=== PATIENT | female | born 1995 ===

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

== ENCOUNTER 2017-08-06 21:07 | Emergency (ER) | payer MEDICAID ==
[2017-08-06 21:28] VITALS: RESP 16
[2017-08-06 22:55] LABS: BASO # 0.1 K/uL (0.0-0.2); BASO % 0.5 % (0.0-2.0); EOS # 0.2 K/uL (0.0-0.7); EOS % 0.9 % (0.0-4.0); HEMOGLOBIN 13.3 g/dL (12.0-16.0); LYMPH # 2.7 K/uL (1.0-4.3); LYMPH % 14.2 % (20.0-40.0); MEAN CELL VOLUME 88.5 fl (81.0-99.0); MEAN CORPUSCULAR HEMOGLOBIN 29.7 pg (27.0-31.0); MEAN CORPUSCULAR HGB CONC 33.6 g/dL (33.0-37.0); MEAN PLATELET VOLUME 8.3 fl (7.2-11.7); MONO # 1.5 K/uL (0.0-0.8); MONO % 7.8 % (0.0-10.0); NEUT # 14.4 K/uL (1.8-7.0); NEUT % 76.6 % (50.0-75.0); NRBC % 0.1 % (0.0-0.0); RBC 4.47 Mil/uL (3.80-5.20); RED CELL DISTRIBUTION WIDTH 12.6 % (11.5-14.5); WHITE BLOOD COUNT 18.8 K/uL (4.8-10.8)
--- NOTE | 2017-08-06 22:57 | ED PDOC ---
HPI: Headache Chief Complaint (Provider): headache/dental pain History Per: Patient History/Exam Limitations: no limitations Onset/Duration Of Symptoms: Hrs Current Symptoms Are (Timing): Still Present Pain Scale Rating Of: 10 Quality: "Pain" Preceeding Symptoms: denies: Visual Disturbances, Known Migraine Symptoms Associated Symptoms: denies: Photophobia, Blurred Vision, Nausea, Vomiting, Extremity Weakness Additional Complaint(s): Frida Naik is a 22 yo F with no chronic medical problems, presented to ED today 08/06/17 due to right sided dental pain, facial pain and headache. Pain started at 12 pm during the day, started as pain in right molar, and then radiated up the face and developed into right sided facial pain and right sided headache. Rates pain 10/10. Took 1 extra strength tylenol at home at 3 pm, but states it didn't help. Denies vision changes, dizziness, one sided/any weakness , loss of balance, nausea, vomiting, chest pain, shortness of breath. PMH: no chronic conditions; states she had issue with a "vein in her head" when she was 16 but no issues since then Surg hx: none OBGYN hx: uses nuvaring, LMP 07/19/17, (1 miscarriage in 2017 at 8 weeks) Fam hx: noncontributory Social hx: denies tobacco use, alcohol use, illicit drug use Meds: none Allergies: none <Aura Tamayo - Last Filed: 08/07/17 00:54> <Moises Srivastava - Last Filed: 08/08/17 05:41> Time Seen by Provider: 08/06/17 21:30 Chief Complaint (Nursing): Headache Supervising Attending Note - Supervising Attending Note The Documented history was done by the: Physician Head Bookkeeper The documented physical exam was done by the: Physician Head Bookkeeper - Attestation: I have personally seen and examined this patient.: Yes I have fully participated in the care of the patient.: Yes I have reviewed all pertinent clinical information: Yes <Moises Srivastava - Last Filed: 08/08/17 05:41> Past Medical History Vital Signs: Last Vital Signs Temp 100 F H 08/06/17 21:25 Pulse 100 H 08/06/17 21:25 Resp 16 08/06/17 21:25 BP 148/88 08/06/17 21:25 Pulse Ox 99 08/06/17 21:25 - Medical History PMH: No Chronic Diseases - Surgical History Surgical History: No Surg Hx - Family History Family History: States: No Known Family Hx - Social History Alcohol: None Drugs: Denies <Aura Tamayo - Last Filed: 08/07/17 00:54> Vital Signs: Last Vital Signs Temp 98.4 F 08/07/17 01:16 Pulse 88 08/07/17 01:16 Resp 16 08/07/17 01:16 BP 119/72 08/07/17 01:16 Pulse Ox 100 08/07/17 01:16 <Moises Srivastava - Last Filed: 08/08/17 05:41> - Home Medications Home Medications: Ambulatory Orders Medication Instructions Recorded Ibuprofen [Motrin] 600 mg PO Q6 #20 tab 04/23/16 oxyCODONE/Acetaminophen [Percocet 1 ea PO Q6 PRN #15 tab 04/23/16 5/325 mg Tab] Ciprofloxacin HCl [Cipro] 500 mg PO BID #20 tab 11/02/16 Dicyclomine [Bentyl] 20 mg PO BID PRN #30 tab 11/02/16 Naproxen [Naprosyn] 1 tab PO BID PRN #30 tab 11/02/16 metroNIDAZOLE [Flagyl] 500 mg PO TID #30 tab 11/02/16 Acetaminophen/Butalbital/Caf 1 - 2 tab PO Q6 PRN #20 tab 08/06/17 [Fioricet] Amoxicillin/Clavulanate [Augmentin 1 tab PO BID #28 tab 08/06/17 875 MG-125 MG] - Allergies Allergies/Adverse Reactions: Allergies Allergy/AdvReac Type Severity Reaction Status Date / Time No Known Allergies Allergy Verified 08/06/17 21:25 Review of Systems Constitutional: Positive for: Fever. Negative for: Chills Eyes: Negative for: Vision Change Cardiovascular: Negative for: Chest Pain, Palpitations Respiratory: Positive for: Cough. Negative for: Shortness of Breath Gastrointestinal: Negative for: Nausea, Vomiting, Abdominal Pain, Diarrhea, Constipation Genitourinary Female: Negative for: Dysuria, Frequency Skin: Negative for: Rash Neurological: Negative for: Weakness, Numbness, Incoordination, Change in Speech <MakennaJarrod pagea - Last Filed: 08/07/17 00:54> Physical Exam - Physical Exam Appears: Positive for: Uncomfortable Skin: Positive for: Normal Color, Warm, Dry Eye Exam: Positive for: Normal appearance, EOMI, PERRL. Negative for: Conjunctival injection, Scleral icterus ENT: Positive for: Pharynx Is (clear), Sinus Pain/Drainage (positive pain in maxillary sinus on R). Negative for: Pharyngeal Erythema, Tonsillar Exudate Neck: Positive for: Supple Cardiovascular/Chest: Positive for: Chest Non Tender, Tachycardia. Negative for : Murmur Respiratory: Positive for: Normal Breath Sounds. Negative for: Accessory Muscle Use, Respiratory Distress Gastrointestinal/Abdominal: Positive for: Normal Exam, Bowel Sounds, Soft. Negative for: Tenderness, Distended Back: Positive for: Normal Inspection Extremity: Negative for: Tenderness, Pedal Edema, Deformity, Swelling <BelkisAura - Last Filed: 08/07/17 00:54> - Laboratory Results Result Diagrams: 08/06/17 22:43 08/06/17 22:43 - ECG O2 Sat by Pulse Oximetry: 99 <DanieAura cantor - Last Filed: 08/07/17 00:54> - Laboratory Results Result Diagrams: 08/06/17 22:43 08/06/17 22:43 <Moises Srivastava - Last Filed: 08/08/17 05:41> Medical Decision Making Medical Decision Makin yo F w right sided headache and facial pain; dental pain vs sinusitis vs migraine CBC w/ diff Blood cultures x2 Lactic acid CMP Urine dip/preg/UA CT head w/o contrast CT maxilofacial w/o contrast IV toradol [address]: Near complete opacification of RIGHT maxillary sinus. Mild mucosal thickening of LEFT maxillary sinus. Mild mucosal thickening of RIGHT frontal sinus. Moderate mucosal mucosal thickening of ethmoid sinuses. Minimal mucosal thickening of sphenoid sinuses. Rocephin 2g IV ordered/given At re-eval, pt felt better, reported some sporadic discomfort in chest upon taking deep breath; EKG and CXR unremarkable. Pt stable for discharge with PO augmentin for 14 days, and fioricet; discussed w / Dr. Srivastava. <Aura Tamayo - Last Filed: 08/07/17 00:54> Disposition - Patient ED Disposition Is Patient to be Admitted: No - Disposition Disposition: Routine/Home Disposition Time: 00:52 <Aura Tamayo - Last Filed: 08/07/17 00:54> <Moises Srivastava - Last Filed: 08/08/17 05:41> - Clinical Impression Clinical Impression: Sinusitis - Disposition Referrals: [facility] [Provider Group] Condition: STABLE Prescriptions: Acetaminophen/Butalbital/Caf [Fioricet] 1 - 2 tab PO Q6 PRN #20 tab PRN Reason: Headache Amoxicillin/Clavulanate [Augmentin 875 MG-125 MG] 1 tab PO BID #28 tab Instructions: Sinusitis in Adults Forms: [facility] (Malay)
[2017-08-06 23:02] LABS: SQUAMOUS EPITHIAL 4 /hpf (0-5); URINE BACTERIA RARE (<OCC); URINE BILIRUBIN NEGATIVE (NEGATIVE); URINE BLOOD NEGATIVE (NEGATIVE); URINE CLARITY CLOUDY (Clear); URINE COLOR YELLOW (YELLOW); URINE GLUCOSE (UA) NEG (Normal); URINE LEUKOCYTE ESTERASE NEG Leu/uL (Negative); URINE PROTEIN NEGATIVE (NEGATIVE); URINE UROBILINOGEN 0.2-1.0 mg/dL (0.2-1.0)
[2017-08-06 23:03] LABS: ALT/SGPT 38 U/L (9-52); AST/SGOT 29 U/L (14-36); BLOOD UREA NITROGEN 11 mg/dl (7-17); CALCIUM 9.3 mg/dL (8.4-10.2); GFR AFRICAN-AMERICAN > 60; GFR NON-AFRICAN AMERICAN > 60
--- NOTE | 2017-08-06 23:15 | CT ---
EXAM: CT Head Without Intravenous Contrast CLINICAL HISTORY: 22 years old, female; Pain; Headache; Additional info: Right sided facial pain/headache TECHNIQUE: Axial computed tomography images of the head/brain without intravenous contrast. All CT scans at this facility use one or more dose reduction techniques, viz.: automated exposure control; ma/kV adjustment per patient size (including targeted exams where dose is matched to indication; i.e. head); or iterative reconstruction technique. Coronal and sagittal reformatted images were created and reviewed. COMPARISON: No relevant prior studies available. FINDINGS: Brain: No intracranial hemorrhage. No mass. No definite edema. Ventricles: No hydrocephalus. Bones/joints: No calvarial fracture. Soft tissues: Unremarkable. Mastoid air cells: No mastoid effusion. IMPRESSION: 1. No definite acute intracranial abnormality. 2. See sinus CT report for additional details.
--- NOTE | 2017-08-06 23:18 | CT ---
EXAM: CT Maxillofacial Without Intravenous Contrast CLINICAL HISTORY: 22 years old, female; Pain; Face pain; Additional info: Right sided facial pain TECHNIQUE: Axial computed tomography images of the face without intravenous contrast. All CT scans at this facility use one or more dose reduction techniques, viz.: automated exposure control; ma/kV adjustment per patient size (including targeted exams where dose is matched to indication; i.e. head); or iterative reconstruction technique. Coronal and sagittal reformatted images were created and reviewed. COMPARISON: No relevant prior studies available. FINDINGS: Bones/joints: No acute fracture. Soft tissues: Unremarkable. Orbits: Unremarkable as visualized. Sinuses: Near complete opacification of RIGHT maxillary sinus. Mild mucosal thickening of LEFT maxillary sinus. Mild mucosal thickening of RIGHT frontal sinus. Moderate mucosal mucosal thickening of ethmoid sinuses. Minimal mucosal thickening of sphenoid sinuses. IMPRESSION: 1. Sinus disease.
[2017-08-06] MEDS ORDERED: cefTRIAXone 2 GM in Sodium Chloride 0.9% 100 ML IVPB STA (23:32)
[2017-08-07 01:17] VITALS: BP 119/72; PULSE 88; TEMP 98.4; O2SAT 100
--- NOTE | 2017-08-07 08:06 | RAD ---
HISTORY: chest pain COMPARISON: No prior. FINDINGS: LUNGS: No active pulmonary disease. PLEURA: No significant pleural effusion identified, no pneumothorax apparent. CARDIOVASCULAR: Normal. OSSEOUS STRUCTURES: No significant abnormalities. VISUALIZED UPPER ABDOMEN: Normal. OTHER FINDINGS: None. IMPRESSION: No acute cardiopulmonary disease appreciated.
--- NOTE | 2017-08-07 11:38 | CARD ---
APPROVED REPORT EKG Measurement Heart [id number] <Conclusion> Normal sinus rhythm Prolonged QT Abnormal ECG
== END 2017-08-07 01:24 | disposition home or self-care (01) ==
LOC: H.ER 21:07
DX: J32.9 Chronic sinusitis, unspecified (principal)
CPT/HCPCS: 70450; 70486; 71045; 80053; 81003; 81025; 83605; 85025; 87040; 93005; 96374; 99285; J0696; J1885